=== PATIENT | male | born 1965 | race Caucasian/White ===

== ENCOUNTER 2025-02-13 07:29 | Day surgery (SDC) | payer OTHER ==
[~2025-02-13] VITALS: Ht 185.4 cm; Wt 107.0 kg
[2025-02-13] VITALS (7 sets, daily range): BP systolic 92–141; BP diastolic 74–108
[~2025-02-13 07:29] MED LIST: ACTOS/METFORMIN; ALLO100 PO; AMPDEX10CR PO; ASPI325 PO; AZIT250 PO; BETA.05TC TP; CETI10 PO; CLARITIN; FAMO20; FEXO180; GLIM4 PO; IBUP600; IBUP800 PO; INSUASPI; INSULANI SC; IRBE150 PO; LORA1 PO; LORA10ER; META800 PO; METF850 PO; MOUNJARO5 MG/0.5 M SC; Metformin HCl1000 MG PO; OLME20 PO; OMEP10ER; OMEP10ER PO; OXYACE5T PO; PREG75 PO; PRILOSEC; PROCODE120 PO; RXLORA1 PO; RXPROCODSY PO; SERT100 PO; SERT50; SERT50 PO; SILD50TA PO; ZOLOFT; [UNRECOGNIZED DRUG - OTHER]; [UNRECOGNIZED DRUG - OTHER]; [UNRECOGNIZED DRUG - OTHER]; [UNRECOGNIZED DRUG - REMARK]; [UNRECOGNIZED DRUG - REMARK]
--- NOTE | 2025-02-13 08:59 | NUR ---
02/13/25 0859 Bal Maldonado CONFIRMED AND REVIEWED H&P, MEDCICATIONS, ALLERGIES, MEDICAL HISTORY, RESPIRATORY HISTORY, VITAL SIGNS, 3-LEAD EKG, CONSENTS, AND PHYSICIAN ORDERS. PATIENT CONFIRMS NPO STATUS AND AGREES WITH SCHEDULED PROCEDURE. MONITOR INTACT WITH CONTINUOUS PULSE OXIMETRY, CAPNOGRAPHY, 3-LEAD EKG, INTERMITTENT BP. SUPPLEMENTAL O2 TO BE TITRATED THROUGHOUT PROCEDURE TO MAINTAIN O2 SATURATION ABOVE 90%. PATIENT DETERMINED TO BE ASA APPROPRIATE FOR PROPOFOL SEDATION PRIOR TO START OF PROCEDURE BY DR. Hays
--- NOTE | 2025-02-13 10:03 | NUR ---
DISCHARGE NOTE PT A&OX4, BREATHING RA, NO COMPLAINTS, TOLERATING PO FLUIDS, AT BEDSIDE. Patient up to Ambulate independently. Gait steady. Discharge instructions reviewed with patient. Patient verbalizes understanding. Copy given to patient to take home. ABDOMEN SOFT AND NON TENDER. Discharged via wheelchair to private car for ride home.
== END 2025-02-13 10:00 | disposition home or self-care (01) ==
LOC: ORSCMMR 07:29 → ORD 08:30 → ORSCMMR 10:00 → ORD 14:00
PROVIDERS: Family Medicine
PROC: 0DJD8ZZ Inspection of Lower Intestinal Tract, Via Natural or Artificial Opening Endoscopic (ICD-10-PCS; principal; 2025-02-13 08:30)
DX: Z12.11 Encounter for screening for malignant neoplasm of colon (principal); K57.30 Diverticulosis of large intestine without perforation or abscess without bleeding; Z86.0100 Personal history of colon polyps, unspecified; Z80.0 Family history of malignant neoplasm of digestive organs; Z83.719 Family history of colon polyps, unspecified; E11.9 Type 2 diabetes mellitus without complications; I10 Essential (primary) hypertension; Z79.84 Long term (current) use of oral hypoglycemic drugs; Z79.85 Long-term (current) use of injectable non-insulin antidiabetic drugs; Z79.899 Other long term (current) drug therapy; F17.220 Nicotine dependence, chewing tobacco, uncomplicated
CPT/HCPCS: 82947; J2704

== ENCOUNTER 2025-02-27 08:08 | Day surgery (SDC) | payer OTHER ==
[~2025-02-27] VITALS: Ht 185.4 cm; Wt 110.7 kg
[~2025-02-27 08:08] MED LIST changes: +NS 500 ML IV ONE
[2025-02-27] MEDS ORDERED: IBUP200 PO (08:34)
[2025-02-27] MEDS ORDERED: FentaNYL Citrate 50 MCG/ML 2 ML Injection ONE (08:37)
[2025-02-27] MEDS ORDERED: Midazolam HCl 1MG / ML 2ML Vial ONE (08:37)
[2025-02-27] MEDS ORDERED: CeFAZolin Sodium 2,000 MG VIAL ONE (08:38)
[2025-02-27] MEDS ORDERED: NS 500 ML IV ONE (08:39)
--- NOTE | 2025-02-27 08:44 | NUR ---
02/27/25 0844 Jackie Huffman TIMEOUT PERFORMED AT BEDSIDE WITH DR MICHAEL AT 0842 IMMEDIATELY PRIOR TO INJECTION OF 8ML OF SOLUTION CONSISTING OF 9ML 1% LIDOCAINE WITH EPI [id number] AND 1ML 8.4% SODIUM BICARBONATE INTO L HAND AND 7ML INTO R HAND AT 0843. PATIENT TOLERATED PROCEDURE WELL.
[2025-02-27 09:32] VITALS: BP 129/78
== END 2025-02-27 09:33 | disposition home or self-care (01) ==
LOC: ORSCSDS 08:08
PROVIDERS: Orthopaedic Surgery
PROC: 01N54ZZ Release Median Nerve, Percutaneous Endoscopic Approach (ICD-10-PCS; principal; 2025-02-27 09:30)
PROC: 0JBH0ZX Excision of Left Lower Arm Subcutaneous Tissue and Fascia, Open Approach, Diagnostic (ICD-10-PCS; principal; 2025-02-27 09:30)
DX: G56.03 Carpal tunnel syndrome, bilateral upper limbs (principal); E11.9 Type 2 diabetes mellitus without complications; I10 Essential (primary) hypertension; G47.33 Obstructive sleep apnea (adult) (pediatric); J45.909 Unspecified asthma, uncomplicated; E66.9 Obesity, unspecified; Z68.30 Body mass index [BMI] 30.0-30.9, adult; Z79.84 Long term (current) use of oral hypoglycemic drugs; Z79.85 Long-term (current) use of injectable non-insulin antidiabetic drugs; Z79.899 Other long term (current) drug therapy
CPT/HCPCS: 82947; 88304; 88313; J0690; J2250; J3010; J7040